=== PATIENT | male | born 1985 | race Caucasian/White ===

== ENCOUNTER → 2019-10-03 15:43 | Outpatient (CLI) | payer BC, SELFPAY ==
--- NOTE | 2019-10-03 15:46 | DI.CT.S_ITS ---
PROCEDURE: CT SOFT TISSUE NECK W CON INDICATIONS: LOCALIZED SWELLING, MASS AND LUMP TECHNIQUE: After the administration of intravenous contrast, 3.0 mm axial sections acquired from the sella to the aortic arch. Additional oblique axial 3.0 mm sections acquired through the pharynx. 3 mm thick coronal and sagittal reformats were generated. For radiation dose reduction, the following was used: automated exposure control. COMPARISON: None. FINDINGS: Image quality: Excellent. Lymph nodes: There is a single 1.1 cm in short axis enlarged right level IIA neck lymph node. Prominent left level II lymph nodes are noted which do not meet pathologic size criteria. Vessels: Visualized vasculature appears patent. Neck spaces: The oropharynx, nasopharynx, and pharynx demonstrate no mucosal lesions. The vocal cords, false vocal cords, pyriform sinuses, epiglottis, vallecula, and tongue base all appear normal. Extramucosal spaces appear unremarkable. Glands: The parotid and submandibular glands appear normal. Thyroid gland is normal. Miscellaneous: Visualized brain and orbits appear normal. Lung apices appear clear. Superficial soft tissues appear normal. Thyroid cartilage and cricopharyngeal cartilage are normal in appearance. Bones: No suspicious bony lesions. Visualized sinuses and mastoids appear unremarkable. IMPRESSION: 1. Enlarged right level IIA neck lymph node which be reactive or neoplastic. 2. No mucosal-based masses. 3. No soft tissue inflammatory changes. 4. No abscess. Dictated by: Lara Britton MD, PhD on 10/03/2019 at 15:21 Approved by: Lara Britton MD, PhD on 10/03/2019 at 15:27
== END ==
PROVIDERS: Referring Provider Otolaryngology; Visit Provider Otolaryngology
DX: R59.0 Localized enlarged lymph nodes (principal)
CPT/HCPCS: 70491; Q9967

== ENCOUNTER → 2023-08-21 10:47 | Outpatient (CLI) | payer OTHER, SELFPAY ==
--- NOTE | 2023-08-21 10:50 | DI.MRI.S_ITS ---
PROCEDURE: MR CERVICAL SPINE WO CON INDICATIONS: Radiculopathy, cervical region TECHNIQUE: Noncontrast sagittal T1 spin echo and T2 fast spin echo, sagittal STIR, foraminal oblique sagittal T2 fast spin echo, and axial gradient echo or T2 fast spin echo through the cervical spine. COMPARISON: [facility], MR, MR CERVICAL SPINE WITHOUT CONTRAST, 06/01/2019, 14:51.In FINDINGS: Image quality: Excellent. Alignment and Curvature: There is normal bony alignment. Bone Marrow: Marrow demonstrates normal overall signal. Spinal Cord: Visualized spinal cord has normal size and signal. No cerebellar tonsillar herniation. Paraspinous Soft Tissues: No paravertebral masses. Prevertebral soft tissues are normal in thickness. A small cystic structure at the hyoid bone is again noted, decreased in size compared to the previous study, consistent with a benign finding. C2-C3: No canal stenosis or foraminal stenosis. C3-C4: No canal stenosis or foraminal stenosis. C4-C5: Again noted is mild degenerative change at C4-C5. There is mild disc bulge. No canal stenosis. There is mild bilateral facet hypertrophy. There is mild uncovertebral joint hypertrophy. There is progressive bilateral foraminal narrowing, moderate bilaterally, with mild flattening deformity on the exiting bilateral C5 nerve roots. C5-C6: Progressive findings. No canal stenosis. Bilateral facet hypertrophy and uncovertebral joint hypertrophy. [id number] right foraminal narrowing. Moderate left foraminal narrowing with mild flattening deformity on the exiting left C6 nerve root. C6-C7: As before, minimal central posterior disc protrusion. No significant canal stenosis. AP diameter of the central canal is 10.6 mm. Mild facet hypertrophy. Mild bilateral foraminal narrowing. C7-T1: No significant canal stenosis or foraminal stenosis. IMPRESSION: 1. Progression of cervical spondylitic change, involving multilevel facet hypertrophy and uncovertebral joint hypertrophy. 2. No central canal stenosis. 3 period multilevel foraminal narrowing as described above. Findings include moderate bilateral foraminal narrowing at C4-C5 and moderate left foraminal narrowing at C5-C6. Dictated by: Carrington Lubin M.D. on 08/22/2023 at 16:19 Approved by: Carrington Lubin M.D. on 08/22/2023 at 17:01
== END ==
LOC: MRI 10:50
PROVIDERS: Referring Provider Acupuncturist; Visit Provider Acupuncturist
DX: M47.22 Other spondylosis with radiculopathy, cervical region (principal); M48.02 Spinal stenosis, cervical region
CPT/HCPCS: 72141